=== PATIENT | male | born 1990 ===

== ENCOUNTER 2018-07-14 14:20 | Day surgery (SDC) | payer OTHER ==
[2018-07-14] VITALS (9 sets, daily range): BP systolic 112–144; BP diastolic 60–91
[~2018-07-14] VITALS: Ht 182.9 cm; Wt 98.1 kg
[~2018-07-14 14:20] MED LIST: NO HOME MEDS; cefazolin/dext.iso 2gm/50ml 50 ML IV ONE; famotidine 20mg tablet PO ONE; ringers solution, lacted 1,000 ML IV SCH
[2018-07-14] MEDS ORDERED: epiNEPHrine 1 mg/ml inj ONE (16:11)
[2018-07-14] MEDS ORDERED: gelatin sponge, absorbable (Gelfoam 100) sponge TP ONE (16:11)
[2018-07-14] MEDS ORDERED: Thrombin (Bovine) 5,000 unit vial TP ONE (16:11)
[2018-07-14] MEDS ORDERED: ROPIVAcaine 0.5% (5mg/ml) 30ml vial ONE ×2 (16:47→17:16)
[2018-07-14] MEDS ORDERED: midazolam 2 mg/2 ml injection ONE (17:18)
[2018-07-14] MEDS ORDERED: fentaNYL/PF 50MCG/1 ML 2ML syringe ONE (17:18)
[2018-07-14] MEDS ORDERED: propofol inj 20 ML IV ONE (17:21)
[2018-07-14] MEDS ORDERED: LIDOcaine 2% (20mg/ml) 5ml vial ONE (17:21)
[2018-07-14] MEDS ORDERED: dexamethasone sod phosphate 10mg/ml inj ONE (17:39)
[2018-07-14] MEDS ORDERED: sevoflurane 250ml liquid IH ONE (17:39)
[2018-07-14] MEDS ORDERED: morphine 4 MG/ML inj SYRINge IV PRN ×2 (17:40)
[2018-07-14] MEDS ORDERED: fentaNYL/PF 50MCG/1 ML 2ML syringe IV PRN ×2 (17:40)
[2018-07-14] MEDS ORDERED: hydrALAZINE 20mg/ml inj. IV PRN (17:40)
[2018-07-14] MEDS ORDERED: labetalol 20mg/4ml (5mg/ml) syringe IV PRN (17:40)
[2018-07-14] MEDS ORDERED: ondansetron/PF 4mg/2ml inj IV PRN (17:40)
[2018-07-14] MEDS ORDERED: ringers solution, lacted 1,000 ML IV SCH (17:40)
[2018-07-14] MEDS ORDERED: ondansetron/PF 4mg/2ml inj ONE (18:56)
[2018-07-14] MEDS ORDERED: ketorolac trometh. 30mg/ml inj. ONE (19:15)
[2018-07-14] MEDS ORDERED: meperidine/PF 25mg/ml syringe IV ONE (20:15)
[2018-07-14] MEDS ORDERED: meperidine/PF 25mg/ml syringe ONE (20:16)
[2018-07-14] MEDS ORDERED: morphine 10mg/ml inj. IV PRN ×2 (20:32→20:33)
[2018-07-14] MEDS ORDERED: acetaminophen 1,000mg/100ml IV 100 ML IV ONE (20:35)
== END 2018-07-14 21:08 ==
LOC: PAS 14:20 → EEVIPCON 17:30 → PAS 21:08
PROVIDERS: ATTEND Orthopaedic Surgery
DX: M23.251 Derangement of posterior horn of lateral meniscus due to old tear or injury, right knee (principal); M23.8X1 Other internal derangements of right knee; G89.29 Other chronic pain; G89.18 Other acute postprocedural pain; Z98.890 Other specified postprocedural states
CPT/HCPCS: 29881; 29888; 64447; A6449; C1713; C1776; J0131; J0171; J0690; J1100; J1885; J2001; J2175; J2250; J2270; J2405; J2704; J3010; L1832; A7000; J2795; J7030; J7120